=== PATIENT | male | born 1950 | race Caucasian/White ===

== ENCOUNTER 2019-04-08 | Emergency (ER) | payer MEDICARE ==
[2019-04-08] MEDS ORDERED: VERAPAMIL240 M3 PO (11:21)
[2019-04-08] MEDS ORDERED: ATACAND8 MG PO (11:21)
[2019-04-08] MEDS ORDERED: COZAAR25 MG PO (11:22)
[2019-04-08] MEDS ORDERED: CEPHALEXIN500 M1 PO (11:38)
[2019-04-08] MEDS ORDERED: ASPIRIN 81 LOW81 MG PO (11:50)
[2019-04-08] MEDS ORDERED: HYDROCO/APAP1 TA9 PO ×2 (12:22→12:23)
== END 2019-04-08 13:30 | disposition home or self-care (01) ==
PROC: 0HQGXZZ Repair Left Hand Skin, External Approach (ICD-10-PCS; principal; 2019-04-08)
DX: S61.213A Laceration without foreign body of left middle finger without damage to nail, initial encounter (principal); I10 Essential (primary) hypertension; I48.91 Unspecified atrial fibrillation; X58.XXXA Exposure to other specified factors, initial encounter; Y93.89 Activity, other specified; Y92.833 Campsite as the place of occurrence of the external cause